=== PATIENT | female | born 1985 | race African-American/Black ===

== ENCOUNTER 2020-10-20 13:22 | Inpatient (IN) | payer MEDICAID ==
[~2020-10-20 13:22] MED LIST: Heparin 10,000 UNITS/ 10 ML VIAL ONE
[2020-10-20 14:37] LABS: #Eosinphils 0.2 thou/uL (0.0-0.7); #Monocytes 1.3 thou/uL (0.11-0.59); %Basophils 0.3 % (0.0-1.0); %Eosinophils 1.5 % (0.0-10.0); %Lymphocytes 12.2 % (21.0-51.0); %Monocytes 7.8 % (0.0-10.0); %Neutrophils 78.2 % (42.0-75.0); Hemoglobin 9.7 g/dL (12.0-16.0); Mean Corpuscular HGB CONC 29.2 g/dL (32.0-36.0); Mean Corpuscular Hemoglobin 29.1 pg (27.0-31.0); Mean Corpuscular Volume 99.7 fL (78.0-98.0); Platelet Count 320 thou/uL (130-400); Red Blood Cell (RBC) Count 3.32 mill/uL (4.20-5.40); White Blood Cell (WBC) Count 16.6 thou/uL (4.8-10.8)
[2020-10-20 14:55] LABS: ALT (SGPT) Less than 7 U/L (8-55); AST (SGOT) 9 U/L (5-34); Albumin 3.7 g/dL (3.5-5.0); Alkaline Phosphatase 68 U/L (40-110); Anion Gap 19 mmol/L (10-20); BUN (Urea Nitrogen) 50 mg/dL (7.0-18.7); Bilirubin, Total 0.5 mg/dL (0.2-1.2); Calc. Creatinine Clearance 0 mL/min (70-130); Calcium 9.7 mg/dL (7.8-10.44); Carbon Dioxide 19 mmol/L (22-29); Chloride 105 mmol/L (98-107); Glucose 78 mg/dL (70-105); Potassium 6.4 mmol/L (3.5-5.1); Protein, Total 7.7 g/dL (6.0-8.3); Sodium 137 mmol/L (136-145)
[2020-10-20 14:56] LABS: Anisocytosis SLIGHT = 6-15 cells (100X) (0-5/hpf); Hypochromia SLIGHT = 6-15 cells (100X) (0-5/hpf); MDiff Complete? YES; Macrocytosis SLIGHT = 6-15 cells (100X) (0-5/hpf); Ovalocytes SLIGHT = 2-5 cells (100X) (0-1/hpf); Platelet Morphology Comment Appears Adequate; Polychromasia SLIGHT = 2-3 cells (100X) (0-2/hpf); Tear Drops SLIGHT = 2-5 cells (100X) (0-1/hpf)
[2020-10-20 14:59] LABS: Acetaminophen Less than 6.0 mcg/mL (10.0-30.0)
[2020-10-20 15:00] LABS: Alcohol Less than 10 mg/dL (Less than 10); Salicylate Less than 8.0 mg/dL (15.0-30.0)
[2020-10-20] MEDS ORDERED: Dextrose 50% Abboject 50 ML SYRINGE ONE ×2 (16:00→16:01)
[2020-10-20] MEDS ORDERED: Sodium Bicarb 50 MEQ/50 ML Abboject 8.4% SYRINGE ONE (16:00)
[2020-10-20] MEDS ORDERED: Insulin Regular 300 UNITS/3 ML VIAL ONE (16:00)
[2020-10-20] MEDS ORDERED: Calcium Chloride 1 GM/10 ML Abboject SYRINGE ONE (16:00)
[2020-10-20] MEDS ORDERED: Ondansetron PF 4 MG/2 ML Vial IVP PRN (16:12)
[2020-10-20] MEDS ORDERED: Calcium Carbonate 500 MG ChewTAB PO PRN (16:12)
[2020-10-20] MEDS ORDERED: Morphine 2 MG/ML VIAL SLOW IVP PRN (16:15)
[2020-10-20] MEDS ORDERED: Insulin Regular 300 UNITS/3 ML VIAL SC PRN (16:30)
[2020-10-20] MEDS ORDERED: Dextrose 50% Abboject 50 ML SYRINGE SLOW IVP PRN (16:30)
[2020-10-20] MEDS ORDERED: Dextrose 5% in Water 1,000 ML IV PRN (16:30)
[2020-10-20 16:35] LABS: HBSAg Index 0.18 S/CO (0-0.99); Hep B Surf Ag Non-Reactive S/CO (NonReactive)
[2020-10-20] MEDS ORDERED: Clindamycin/D5W 900 mg/50 ml Premix Bag ONE (19:36)
[2020-10-20] MEDS: Clindamycin/D5W 900 MG in Premix Bag 1 BAG IVPB SCH (22:03)
[2020-10-20] MEDS: Acetaminophen 325 MG TAB PO PRN (23:52)
[2020-10-21] MEDS: Clindamycin/D5W 900 MG in Premix Bag 1 BAG IVPB SCH ×3 (01:40→16:12)
[2020-10-21] MEDS: HYDROcodone/Acetaminophen 5/325 mg Tablet PO PRN ×2 (04:30→11:21)
[2020-10-21 07:29] LABS: Hemoglobin 9.9 g/dL (12.0-16.0); Mean Corpuscular HGB CONC 30.3 g/dL (32.0-36.0); Mean Corpuscular Hemoglobin 30.2 pg (27.0-31.0); Mean Corpuscular Volume 99.6 fL (78.0-98.0); Mean Platelet Volume 7.2 fL (7.4-10.4); Platelet Count 226 thou/uL (130-400); RBC Distribution Width 15.1 % (11.5-14.5); Red Blood Cell (RBC) Count 3.28 mill/uL (4.20-5.40); White Blood Cell (WBC) Count 16.3 thou/uL (4.8-10.8)
[2020-10-21 07:39] LABS: Anion Gap 19 mmol/L (10-20); BUN (Urea Nitrogen) 22 mg/dL (7.0-18.7); Calc. Creatinine Clearance 20 mL/min (70-130); Calcium 9.3 mg/dL (7.8-10.44); Carbon Dioxide 22 mmol/L (22-29); Chloride 99 mmol/L (98-107); Glucose 87 mg/dL (70-105); Potassium 4.4 mmol/L (3.5-5.1); Sodium 136 mmol/L (136-145)
[2020-10-21] MEDS: Saccharomyces boulardii 250 MG CAP PO SCH (09:32)
[2020-10-21] MEDS: Enoxaparin Sodium 30 MG/0.3 ML SYRINGE SC SCH (09:32)
[2020-10-21 11:02] LABS: Band 17 % (5-11); Lymphocytes 9 % (21-51); MDiff Complete? YES; Metamyelocyte 2 % (0-0); Monocytes 10 % (0-10); Myelocyte 1 % (0-0); Neutrophil 61 % (42-75); RBC Morphology Normal
[2020-10-21 15:32] LABS: SARS-CoV-2 PCR by NAA Not Detected (NotDetected)
[2020-10-21] MEDS: Acetaminophen 325 MG TAB PO PRN ×2 (16:12→21:19)
[2020-10-21] MEDS ORDERED: Lidocaine 1% w/Epinephrine 1:100K 20 ML VIAL IJ SCH (19:15)
[2020-10-21] MEDS: levETIRAcetam 500 MG TAB PO SCH (21:19)
[2020-10-22] MEDS ORDERED: Sodium Chloride 0.9% 500 ML IV SCH (00:15)
[2020-10-22] MEDS: Clindamycin/D5W 900 MG in Premix Bag 1 BAG IVPB SCH ×3 (03:14→18:10)
[2020-10-22] MEDS ORDERED: Heparin 10,000 UNITS/ 10 ML VIAL ONE (08:46)
[2020-10-22 11:41] LABS: Hemoglobin 8.8 g/dL (12.0-16.0); Mean Corpuscular HGB CONC 29.7 g/dL (32.0-36.0); Mean Corpuscular Hemoglobin 29.4 pg (27.0-31.0); Mean Corpuscular Volume 98.9 fL (78.0-98.0); Mean Platelet Volume 7.6 fL (7.4-10.4); Platelet Count 270 thou/uL (130-400); Red Blood Cell (RBC) Count 2.98 mill/uL (4.20-5.40); White Blood Cell (WBC) Count 20.6 thou/uL (4.8-10.8)
[2020-10-22 11:43] LABS: Anion Gap 18 mmol/L (10-20); BUN (Urea Nitrogen) 17 mg/dL (7.0-18.7); Calc. Creatinine Clearance 29 mL/min (70-130); Carbon Dioxide 27 mmol/L (22-29); Chloride 98 mmol/L (98-107); Glucose 102 mg/dL (70-105); Potassium 3.5 mmol/L (3.5-5.1); Sodium 139 mmol/L (136-145)
[2020-10-22] MEDS: Lorazepam 2 MG/ML VIAL SLOW IVP PRN (11:53)
[2020-10-22 12:15] LABS: Band 42 % (5-11); Eosinophils 2 % (0-10); Hypochromia SLIGHT = 6-15 cells (100X) (0-5/hpf); Lymphocytes 7 % (21-51); MDiff Complete? YES; Monocytes 2 % (0-10); Neutrophil 47 % (42-75); Platelet Morphology Comment Appears Adequate; Polychromasia SLIGHT = 2-3 cells (100X) (0-2/hpf)
[2020-10-22] MEDS: levETIRAcetam 500 MG TAB PO SCH ×2 (13:41→21:16)
[2020-10-22] MEDS: Saccharomyces boulardii 250 MG CAP PO SCH (13:41)
[2020-10-22] MEDS: Enoxaparin Sodium 30 MG/0.3 ML SYRINGE SC SCH (13:43)
[2020-10-22] MEDS: Acetaminophen 325 MG TAB PO PRN (21:16)
[2020-10-23] MEDS: Clindamycin/D5W 900 MG in Premix Bag 1 BAG IVPB SCH (02:41)
[2020-10-23 05:23] LABS: Anion Gap 19 mmol/L (10-20); BUN (Urea Nitrogen) 23 mg/dL (7.0-18.7); Calc. Creatinine Clearance 21 mL/min (70-130); Calcium 9.3 mg/dL (7.8-10.44); Carbon Dioxide 25 mmol/L (22-29); Chloride 99 mmol/L (98-107); Glucose 76 mg/dL (70-105); Potassium 3.6 mmol/L (3.5-5.1); Sodium 139 mmol/L (136-145)
[2020-10-23 05:45] LABS: Hemoglobin 9.1 g/dL (12.0-16.0); Mean Corpuscular HGB CONC 29.8 g/dL (32.0-36.0); Mean Corpuscular Hemoglobin 30.4 pg (27.0-31.0); Platelet Count 271 thou/uL (130-400); RBC Distribution Width 15.6 % (11.5-14.5); White Blood Cell (WBC) Count 23.5 thou/uL (4.8-10.8)
[2020-10-23 06:26] LABS: Band 34 % (5-11); Eosinophils 2 % (0-10); Lymphocytes 10 % (21-51); Monocytes 7 % (0-10); Neutrophil 47 % (42-75)
[2020-10-23] MEDS: levETIRAcetam 500 MG TAB PO SCH ×2 (08:42→21:01)
[2020-10-23] MEDS: Saccharomyces boulardii 250 MG CAP PO SCH (08:42)
[2020-10-23] MEDS: Enoxaparin Sodium 30 MG/0.3 ML SYRINGE SC SCH (08:42)
[2020-10-23] MEDS ORDERED: Cefepime 1 GM in Sodium Chloride 0.9% 100 ML IVPB SCH (09:00)
[2020-10-23] MEDS ORDERED: Vancomycin 1 GM in Premix Bag 1 BAG IVPB SCH ×2 (09:00→16:00)
[2020-10-23] MEDS: HYDROcodone/Acetaminophen 5/325 mg Tablet PO PRN (09:02)
[2020-10-23 12:20] LABS: MDiff Complete? YES
[2020-10-23] MEDS ORDERED: Iopamidol-370 76% 500 ML 1 ML ONE (15:03)
[2020-10-23] MEDS ORDERED: Vancomycin HCl 750 MG in Sodium Chloride 0.9% 250 ML 250 ML IVPB SCH (16:00)
[2020-10-23] MEDS ORDERED: Vancomycin HCl 1.25 GM in Sodium Chloride 0.9% 250 ML 250 ML IVPB SCH (16:00)
[2020-10-23] MEDS ORDERED: Vancomycin HCl 500 MG in Sodium Chloride 0.9% 100 ML IVPB SCH (16:00)
[2020-10-23] MEDS ORDERED: HOLD VANCOMYCIN FOR LEVEL >20 FS SCH (16:00)
[2020-10-23] MEDS ORDERED: Meropenem 500 MG in Sodium Chloride 0.9% 100 ML IVPB SCH (18:00)
[2020-10-23 18:47] LABS: BHCG - Serum Negative (NEGATIVE); Pregs Control Background? CLEAR/WHITE (CLR/WHITE); Pregs Control Bar Appear? YES (CONTROL BAR)
[2020-10-23] MEDS: Meropenem 500 MG in Sodium Chloride 0.9% 100 ML IVPB SCH (20:59)
[2020-10-23] MEDS: Acetaminophen 325 MG TAB PO PRN (21:00)
[2020-10-23] MEDS: Apixaban 2.5 MG TAB PO SCH (21:01)
[2020-10-24 08:40] LABS: Hemoglobin 7.9 g/dL (12.0-16.0); Mean Corpuscular HGB CONC 30.1 g/dL (32.0-36.0); Mean Corpuscular Hemoglobin 30.4 pg (27.0-31.0); Mean Platelet Volume 7.5 fL (7.4-10.4); Platelet Count 291 thou/uL (130-400); RBC Distribution Width 15.8 % (11.5-14.5); Red Blood Cell (RBC) Count 2.59 mill/uL (4.20-5.40); White Blood Cell (WBC) Count 12.6 thou/uL (4.8-10.8)
[2020-10-24 08:55] LABS: Vancomycin, Trough 34.5 ug/mL
[2020-10-24 08:57] LABS: Anion Gap 16 mmol/L (10-20); BUN (Urea Nitrogen) 37 mg/dL (7.0-18.7); Calc. Creatinine Clearance 17 mL/min (70-130); Calcium 9.1 mg/dL (7.8-10.44); Carbon Dioxide 26 mmol/L (22-29); Chloride 100 mmol/L (98-107); Glucose 90 mg/dL (70-105); Potassium 3.5 mmol/L (3.5-5.1); Sodium 138 mmol/L (136-145)
[2020-10-24] MEDS ORDERED: Albumin 25% 25 GM/100 ML BOT IVPB SCH (09:00)
[2020-10-24] MEDS: HYDROcodone/Acetaminophen 5/325 mg Tablet PO PRN ×2 (09:25→23:40)
[2020-10-24] MEDS ORDERED: Lorazepam 2 MG/ML VIAL ONE (10:04)
[2020-10-24 10:10] LABS: Band 32 % (5-11); Eosinophils 1 % (0-10); Hypochromia SLIGHT = 6-15 cells (100X) (0-5/hpf); Lymphocytes 4 % (21-51); MDiff Complete? YES; Metamyelocyte 1 % (0-0); Monocytes 1 % (0-10); Neutrophil 61 % (42-75); Platelet Morphology Comment Appears Adequate; Polychromasia SLIGHT = 2-3 cells (100X) (0-2/hpf)
[2020-10-24] MEDS ORDERED: Heparin 10,000 UNITS/ 10 ML VIAL ONE (10:30)
[2020-10-24] MEDS ORDERED: Morphine 4 MG/ML VIAL SLOW IVP PRN (10:37)
[2020-10-24] MEDS ORDERED: Lorazepam 2 MG/ML VIAL SLOW IVP SCH (10:45)
[2020-10-24 10:48] LABS: Anion Gap 15 mmol/L (10-20); BUN (Urea Nitrogen) 22 mg/dL (7.0-18.7); CK (CPK) 241 U/L (29-168); Calc. Creatinine Clearance 27 mL/min (70-130); Calcium 8.9 mg/dL (7.8-10.44); Carbon Dioxide 26 mmol/L (22-29); Chloride 101 mmol/L (98-107); Glucose 93 mg/dL (70-105); Potassium 3.4 mmol/L (3.5-5.1); Sodium 139 mmol/L (136-145)
[2020-10-24 10:53] LABS: CKMB 0.7 ng/mL (0-6.6); Troponin I Less than 0.010 ng/mL (< 0.028)
[2020-10-24] MEDS: Apixaban 2.5 MG TAB PO SCH ×2 (11:54→21:33)
[2020-10-24] MEDS: Saccharomyces boulardii 250 MG CAP PO SCH (11:54)
[2020-10-24] MEDS: levETIRAcetam 500 MG TAB PO SCH ×2 (11:54→21:33)
[2020-10-24] MEDS: Acetaminophen 325 MG TAB PO PRN ×2 (12:37→17:40)
[2020-10-24] MEDS: EPOETIN ALFA-EPBX (ESRD) 10,000 UNIT/ML VIAL IVP SCH (15:30)
[2020-10-24] MEDS: Meropenem 500 MG in Sodium Chloride 0.9% 100 ML IVPB SCH (21:36)
[2020-10-25 04:54] LABS: Hemoglobin 8.9 g/dL (12.0-16.0); Mean Corpuscular HGB CONC 29.5 g/dL (32.0-36.0); Mean Corpuscular Hemoglobin 29.5 pg (27.0-31.0); Mean Platelet Volume 7.8 fL (7.4-10.4); Platelet Count 365 thou/uL (130-400); RBC Distribution Width 15.8 % (11.5-14.5); Red Blood Cell (RBC) Count 3.02 mill/uL (4.20-5.40); White Blood Cell (WBC) Count 17.3 thou/uL (4.8-10.8)
[2020-10-25 05:03] LABS: Anion Gap 17 mmol/L (10-20); BUN (Urea Nitrogen) 30 mg/dL (7.0-18.7); Calc. Creatinine Clearance 19 mL/min (70-130); Calcium 9.2 mg/dL (7.8-10.44); Carbon Dioxide 27 mmol/L (22-29); Chloride 101 mmol/L (98-107); Glucose 95 mg/dL (70-105); Potassium 3.8 mmol/L (3.5-5.1); Sodium 141 mmol/L (136-145)
[2020-10-25 05:58] LABS: Band 22 % (5-11); Eosinophils 3 % (0-10); Lymphocytes 10 % (21-51); MDiff Complete? YES; Monocytes 6 % (0-10); Neutrophil 59 % (42-75)
[2020-10-25] MEDS: Apixaban 2.5 MG TAB PO SCH ×3 (08:22→22:33)
[2020-10-25] MEDS: Saccharomyces boulardii 250 MG CAP PO SCH (08:22)
[2020-10-25] MEDS: levETIRAcetam 500 MG TAB PO SCH ×3 (08:22→22:33)
[2020-10-25] MEDS: HYDROcodone/Acetaminophen 5/325 mg Tablet PO PRN ×3 (10:14→22:33)
[2020-10-25] MEDS: Meropenem 500 MG in Sodium Chloride 0.9% 100 ML IVPB SCH ×2 (21:28→22:32)
[2020-10-26] MEDS: Midodrine HCl 5 MG TAB PO PRN (03:27)
[2020-10-26 05:08] LABS: Hemoglobin 8.8 g/dL (12.0-16.0); Mean Corpuscular HGB CONC 28.6 g/dL (32.0-36.0); Mean Platelet Volume 7.8 fL (7.4-10.4); Platelet Count 401 thou/uL (130-400); Red Blood Cell (RBC) Count 3.02 mill/uL (4.20-5.40); White Blood Cell (WBC) Count 17.1 thou/uL (4.8-10.8)
[2020-10-26 05:18] LABS: Anion Gap 14 mmol/L (10-20); BUN (Urea Nitrogen) 35 mg/dL (7.0-18.7); Calc. Creatinine Clearance 17 mL/min (70-130); Calcium 9.6 mg/dL (7.8-10.44); Carbon Dioxide 28 mmol/L (22-29); Chloride 100 mmol/L (98-107); Glucose 122 mg/dL (70-105); Potassium 3.8 mmol/L (3.5-5.1); Sodium 138 mmol/L (136-145)
[2020-10-26 05:29] LABS: Band 20 % (5-11); Eosinophils 2 % (0-10); Hypochromia SLIGHT = 6-15 cells (100X) (0-5/hpf); Lymphocytes 10 % (21-51); MDiff Complete? YES; Macrocytosis SLIGHT = 6-15 cells (100X) (0-5/hpf); Monocytes 9 % (0-10); Neutrophil 59 % (42-75); Platelet Morphology Comment Appears Increased
[2020-10-26] MEDS: Lorazepam 0.5 MG TAB PO PRN (09:53)
[2020-10-26] MEDS: Apixaban 2.5 MG TAB PO SCH ×2 (09:53→22:05)
[2020-10-26] MEDS: levETIRAcetam 500 MG TAB PO SCH ×2 (09:53→22:04)
[2020-10-26] MEDS: Saccharomyces boulardii 250 MG CAP PO SCH (09:53)
[2020-10-26] MEDS: Morphine 4 MG/ML VIAL SLOW IVP PRN (15:03)
[2020-10-26] MEDS: Lorazepam 2 MG/ML VIAL SLOW IVP PRN (18:55)
[2020-10-26] MEDS: Acetaminophen 325 MG TAB PO PRN (22:04)
[2020-10-26] MEDS: Meropenem 500 MG in Sodium Chloride 0.9% 100 ML IVPB SCH (22:04)
[2020-10-27] MEDS: Midodrine HCl 5 MG TAB PO PRN (03:12)
[2020-10-27 06:29] LABS: Hemoglobin 8.9 g/dL (12.0-16.0); Mean Corpuscular HGB CONC 31.2 g/dL (32.0-36.0); Mean Corpuscular Hemoglobin 31.3 pg (27.0-31.0); Mean Platelet Volume 7.6 fL (7.4-10.4); Platelet Count 458 thou/uL (130-400); RBC Distribution Width 16.1 % (11.5-14.5); Red Blood Cell (RBC) Count 2.83 mill/uL (4.20-5.40); White Blood Cell (WBC) Count 18.7 thou/uL (4.8-10.8)
[2020-10-27 06:30] LABS: Anion Gap 14 mmol/L (10-20); BUN (Urea Nitrogen) 40 mg/dL (7.0-18.7); Calc. Creatinine Clearance 15 mL/min (70-130); Calcium 9.6 mg/dL (7.8-10.44); Carbon Dioxide 27 mmol/L (22-29); Chloride 100 mmol/L (98-107); Glucose 88 mg/dL (70-105); Potassium 3.7 mmol/L (3.5-5.1); Sodium 137 mmol/L (136-145)
[2020-10-27 08:34] LABS: Band 28 % (5-11); Eosinophils 1 % (0-10); Hypochromia MODERATE=16-30 cells (100X) (0-5/hpf); Lymphocytes 12 % (21-51); MDiff Complete? YES; Monocytes 4 % (0-10); Myelocyte 1 % (0-0); Neutrophil 52 % (42-75); Platelet Morphology Comment Appears Increased; Polychromasia SLIGHT = 2-3 cells (100X) (0-2/hpf)
[2020-10-27] MEDS: Lorazepam 2 MG/ML VIAL SLOW IVP PRN (08:50)
[2020-10-27] MEDS ORDERED: Vancomycin HCl 750 MG in Sodium Chloride 0.9% 250 ML 250 ML IVPB SCH (12:00)
[2020-10-27] MEDS: levETIRAcetam 500 MG TAB PO SCH ×2 (12:54→20:40)
[2020-10-27] MEDS: Apixaban 2.5 MG TAB PO SCH ×2 (12:54→20:40)
[2020-10-27] MEDS: Saccharomyces boulardii 250 MG CAP PO SCH (12:54)
[2020-10-27] MEDS ORDERED: Lidocaine 1% w/Epinephrine 1:100K 20 ML VIAL IJ SCH (13:15)
[2020-10-27] MEDS: Morphine 4 MG/ML VIAL SLOW IVP PRN ×2 (13:15→13:44)
[2020-10-27] MEDS ORDERED: EPOETIN ALFA-EPBX (ESRD) 10,000 UNIT/ML VIAL IVP SCH (13:15)
[2020-10-27] MEDS: EPOETIN ALFA-EPBX (ESRD) 10,000 UNIT/ML VIAL IVP SCH (13:30)
[2020-10-27] MEDS: Acetaminophen 325 MG TAB PO PRN (20:40)
[2020-10-27] MEDS: Meropenem 500 MG in Sodium Chloride 0.9% 100 ML IVPB SCH (20:46)
[2020-10-28] MEDS: Lorazepam 0.5 MG TAB PO PRN (01:15)
[2020-10-28 05:19] LABS: Anion Gap 16 mmol/L (10-20); BUN (Urea Nitrogen) 25 mg/dL (7.0-18.7); Calc. Creatinine Clearance 20 mL/min (70-130); Calcium 8.7 mg/dL (7.8-10.44); Carbon Dioxide 25 mmol/L (22-29); Chloride 103 mmol/L (98-107); Glucose 77 mg/dL (70-105); Potassium 3.7 mmol/L (3.5-5.1); Sodium 140 mmol/L (136-145)
[2020-10-28] MEDS: levETIRAcetam 500 MG TAB PO SCH ×2 (09:19→20:52)
[2020-10-28] MEDS: Apixaban 2.5 MG TAB PO SCH ×2 (09:19→20:52)
[2020-10-28] MEDS: Saccharomyces boulardii 250 MG CAP PO SCH (09:19)
[2020-10-28] MEDS ORDERED: Albumin 25% 25 GM/100 ML BOT IVPB SCH (10:00)
[2020-10-28 11:06] LABS: Hemoglobin 9.2 g/dL (12.0-16.0); Mean Corpuscular HGB CONC 29.3 g/dL (32.0-36.0); Mean Corpuscular Hemoglobin 29.7 pg (27.0-31.0); Mean Platelet Volume 7.9 fL (7.4-10.4); Platelet Count 448 thou/uL (130-400); RBC Distribution Width 16.1 % (11.5-14.5); Red Blood Cell (RBC) Count 3.08 mill/uL (4.20-5.40); White Blood Cell (WBC) Count 22.9 thou/uL (4.8-10.8)
[2020-10-28 12:05] LABS: Band 27 % (5-11); Eosinophils 1 % (0-10); Lymphocytes 17 % (21-51); MDiff Complete? YES; Macrocytosis SLIGHT = 6-15 cells (100X) (0-5/hpf); Monocytes 9 % (0-10); Myelocyte 1 % (0-0); Neutrophil 44 % (42-75); Platelet Morphology Comment Appears Increased; Polychromasia SLIGHT = 2-3 cells (100X) (0-2/hpf); Reactive Lymphocytes 1 % (0-10)
[2020-10-28] MEDS ORDERED: AUGMENTIN PO PRN (14:17)
[2020-10-28] MEDS: Acetaminophen 325 MG TAB PO PRN ×2 (17:17→21:46)
[2020-10-28] MEDS: metroNIDAZOLE 500 MG TAB PO SCH ×2 (17:17→20:52)
[2020-10-28] MEDS: Amoxicillin/Potassium Clav 500 MG TAB PO SCH (20:52)
[2020-10-29] MEDS: Acetaminophen 325 MG TAB PO PRN (04:37)
[2020-10-29 04:53] LABS: Anion Gap 16 mmol/L (10-20); BUN (Urea Nitrogen) 33 mg/dL (7.0-18.7); Calc. Creatinine Clearance 17 mL/min (70-130); Calcium 9.2 mg/dL (7.8-10.44); Carbon Dioxide 27 mmol/L (22-29); Chloride 105 mmol/L (98-107); Glucose 93 mg/dL (70-105); Potassium 3.7 mmol/L (3.5-5.1); Sodium 144 mmol/L (136-145)
[2020-10-29 04:58] LABS: Band 16 % (5-11); Eosinophils 1 % (0-10); Hemoglobin 8.4 g/dL (12.0-16.0); Hypochromia SLIGHT = 6-15 cells (100X) (0-5/hpf); Lymphocytes 12 % (21-51); MDiff Complete? YES; Mean Corpuscular Hemoglobin 29.1 pg (27.0-31.0); Mean Platelet Volume 7.7 fL (7.4-10.4); Monocytes 5 % (0-10); Neutrophil 66 % (42-75); Platelet Count 391 thou/uL (130-400); Platelet Morphology Comment Appears Adequate; RBC Distribution Width 16.1 % (11.5-14.5); Red Blood Cell (RBC) Count 2.87 mill/uL (4.20-5.40); White Blood Cell (WBC) Count 16.5 thou/uL (4.8-10.8)
[2020-10-29] MEDS: Lorazepam 0.5 MG TAB PO PRN (07:25)
[2020-10-29] MEDS: Amoxicillin/Potassium Clav 500 MG TAB PO SCH ×2 (09:32→21:36)
[2020-10-29] MEDS: metroNIDAZOLE 500 MG TAB PO SCH ×3 (09:32→21:36)
[2020-10-29] MEDS: Saccharomyces boulardii 250 MG CAP PO SCH (09:32)
[2020-10-29] MEDS: Apixaban 2.5 MG TAB PO SCH ×2 (09:33→21:37)
[2020-10-29] MEDS: levETIRAcetam 500 MG TAB PO SCH ×2 (09:33→21:36)
[2020-10-29] MEDS ORDERED: Heparin 10,000 UNITS/ 10 ML VIAL ONE (09:48)
[2020-10-29 10:10] LABS: Vancomycin, Random 20.5 ug/mL (See Comment)
[2020-10-29] MEDS: EPOETIN ALFA-EPBX (ESRD) 10,000 UNIT/ML VIAL IVP SCH (11:17)
[2020-10-29 14:24] VITALS: BMI 31.5
[2020-10-29] MEDS ORDERED: Melatonin 3 MG TAB PO PRN (20:19)
[2020-10-30] MEDS ORDERED: Ondansetron ORAL SOLN. 4 MG/5 ML UDCUP PO PRN (00:04)
[2020-10-30] MEDS: Acetaminophen 325 MG TAB PO PRN (01:09)
[2020-10-30] MEDS: Ondansetron ODT 4 MG TAB PO PRN ×3 (04:51→19:47)
[2020-10-30] MEDS: HYDROcodone/Acetaminophen 5/325 mg Tablet PO PRN ×2 (09:12→14:22)
[2020-10-30] MEDS: Saccharomyces boulardii 250 MG CAP PO SCH ×2 (09:14→10:48)
[2020-10-30] MEDS: levETIRAcetam 500 MG TAB PO SCH ×3 (09:14→20:19)
[2020-10-30] MEDS: metroNIDAZOLE 500 MG TAB PO SCH ×4 (09:14→20:19)
[2020-10-30] MEDS: Apixaban 2.5 MG TAB PO SCH ×3 (09:14→20:19)
[2020-10-30] MEDS: Amoxicillin/Potassium Clav 500 MG TAB PO SCH ×2 (09:15→10:49)
[2020-10-30] MEDS ORDERED: Ondansetron ODT 8 MG TAB SL PRN (10:15)
[2020-10-30] MEDS ORDERED: Promethazine HCl 12.5 MG in Sodium Chloride 0.9% 50 ML IVPB PRN (10:15)
[2020-10-30] MEDS ORDERED: Sodium Chloride 0.9% 500 ML IV SCH (17:00)
[2020-10-30] MEDS ORDERED: HYDROcodone/Acetaminophen 5/325 mg Tablet PO PRN (17:39)
[2020-10-31 05:23] LABS: Anion Gap 16 mmol/L (10-20); BUN (Urea Nitrogen) 44 mg/dL (7.0-18.7); Calc. Creatinine Clearance 13 mL/min (70-130); Calcium 9.2 mg/dL (7.8-10.44); Carbon Dioxide 25 mmol/L (22-29); Chloride 105 mmol/L (98-107); Glucose 87 mg/dL (70-105); Magnesium 1.9 mg/dL (1.6-2.6); Phosphorus 4.8 mg/dL (2.3-4.7); Potassium 4.1 mmol/L (3.5-5.1); Sodium 142 mmol/L (136-145)
[2020-10-31 05:38] LABS: Band 13 % (5-11); Eosinophils 3 % (0-10); Lymphocytes 15 % (21-51); MDiff Complete? YES; Macrocytosis SLIGHT = 6-15 cells (100X) (0-5/hpf); Mean Corpuscular HGB CONC 29.2 g/dL (32.0-36.0); Mean Corpuscular Hemoglobin 29.6 pg (27.0-31.0); Mean Platelet Volume 7.5 fL (7.4-10.4); Metamyelocyte 2 % (0-0); Monocytes 4 % (0-10); Myelocyte 1 % (0-0); Neutrophil 62 % (42-75); Platelet Count 468 thou/uL (130-400); Platelet Morphology Comment Appears Increased; Red Blood Cell (RBC) Count 3.05 mill/uL (4.20-5.40); White Blood Cell (WBC) Count 17.6 thou/uL (4.8-10.8)
[2020-10-31] MEDS ORDERED: traMADol HCl 50 MG TAB PO PRN ×2 (07:39→10:21)
[2020-10-31] MEDS ORDERED: Amoxicillin/Potassium Clav 500 MG TAB PO SCH (09:00)
[2020-10-31] MEDS: Apixaban 2.5 MG TAB PO SCH (09:12)
[2020-10-31] MEDS: metroNIDAZOLE 500 MG TAB PO SCH (09:13)
[2020-10-31] MEDS: levETIRAcetam 500 MG TAB PO SCH (09:13)
[2020-10-31] MEDS: Saccharomyces boulardii 250 MG CAP PO SCH (09:13)
[2020-10-31 09:21] LABS: Vancomycin, Random 18.2 ug/mL (See Comment)
[2020-10-31 10:07] VITALS: BP 114/59; TEMP 97.5
[2020-10-31] MEDS: EPOETIN ALFA-EPBX (ESRD) 10,000 UNIT/ML VIAL IVP SCH (11:38)
== END 2020-10-31 11:50 | disposition hospice, inpatient (51) | DRG 853 ==
LOC: ERS 13:22 → OBSVTOIN 16:13 → 2NO 16:13
PROVIDERS: ADMIT Family Medicine; ATTEND Internal Medicine
PROC: 5A1D70Z Performance of Urinary Filtration, Intermittent, Less than 6 Hours Per Day (ICD-10-PCS; 2020-10-20)
PROC: 0J9C0ZZ Drainage of Pelvic Region Subcutaneous Tissue and Fascia, Open Approach (ICD-10-PCS; principal; 2020-10-22)
PROC: 0JBC0ZZ Excision of Pelvic Region Subcutaneous Tissue and Fascia, Open Approach (ICD-10-PCS; 2020-10-27)
DX: A41.9 Sepsis, unspecified organism (principal); N18.6 End stage renal disease; L02.214 Cutaneous abscess of groin; R45.851 Suicidal ideations; L02.219 Cutaneous abscess of trunk, unspecified; E87.2 Acidosis; I12.0 Hypertensive chronic kidney disease with stage 5 chronic kidney disease or end stage renal disease; Z20.822 Contact with and (suspected) exposure to COVID-19; F32.9 Major depressive disorder, single episode, unspecified; E11.22 Type 2 diabetes mellitus with diabetic chronic kidney disease; R56.9 Unspecified convulsions; E87.70 Fluid overload, unspecified; E87.5 Hyperkalemia; D63.1 Anemia in chronic kidney disease; E11.319 Type 2 diabetes mellitus with unspecified diabetic retinopathy without macular edema; H54.8 Legal blindness, as defined in USA; Z79.899 Other long term (current) drug therapy; Z86.718 Personal history of other venous thrombosis and embolism; Z99.2 Dependence on renal dialysis; Z83.1 Family history of other infectious and parasitic diseases; Z91.15 Patient's noncompliance with renal dialysis; Z88.1 Allergy status to other antibiotic agents; Z88.5 Allergy status to narcotic agent; Z79.4 Long term (current) use of insulin; Z78.1 Physical restraint status
CPT/HCPCS: 36415; 36416; 71045; 72193; 74018; 80048; 80053; 80202; 80307; 82550; 82553; 83735; 83880; 84100; 84443; 84484; 84703; 85025; 87040; 87070; 87076; 87205; 87340; 87635; 90935; 93005; 93010; 96374; 96375; G0257; J0692; J1644; J1650; J1815; J1956; J2060; J2185; J2270; J2405; J3370; J3490; J7030; J7050; Q0162; Q5105; Q9967; U0003; U0005

== ENCOUNTER 2020-11-03 20:43 | Emergency (ER) | payer MEDICAID | END 2020-11-03 23:34 | disposition home or self-care (01) | LOC: ERS 20:43 | DX: I12.0 Hypertensive chronic kidney disease with stage 5 chronic kidney disease or end stage renal disease (principal); N18.6 End stage renal disease; E11.22 Type 2 diabetes mellitus with diabetic chronic kidney disease; Z99.2 Dependence on renal dialysis; Z79.899 Other long term (current) drug therapy; Z79.82 Long term (current) use of aspirin | CPT/HCPCS: 99283 ==